=== PATIENT | female | born 1990 | race Caucasian/White ===

== ENCOUNTER 2017-10-18 02:50 | Inpatient (IN) | payer MEDICAID ==
[~2017-10-18] VITALS: Ht 154.9 cm; Wt 52.8 kg
[2017-10-18 03:21] LABS: BASOPHIL % 0.2 % (0-2); PLATELET COUNT 172 x10^3mcL (130-400)
[2017-10-18 03:38] LABS: POTASSIUM SERUM 3.5 mmol/L (3.5-5.1); TOTAL PROTEIN, SERUM 6.6 g/dL (6.4-8.2)
[2017-10-18 04:04] LABS: CALCIUM 7.7 mg/dL (8.5-10.1); CARBON DIOXIDE 21.9 mmol/L (21-32); CHLORIDE SERUM 110 mmol/L (98-107); CREATININE SERUM 0.7 mg/dL (0.6-1.0); GFR1 > 60 mL/min; GLUCOSE SERUM 103 mg/dL (74-106); SODIUM SERUM 141 mmol/L (136-145)
[2017-10-18 04:08] LABS: ALBUMIN 3.6 g/dL (3.4-5.0); ALKALINE PHOSPHATASE 58 U/L (46-116); ALT/SGPT 18 U/L (14-59); AST/SGOT 28 U/L (15-37); BILIRUBIN TOTAL 0.17 mg/dL (0.20-1.00)
[2017-10-18 04:23] LABS: microscopic required? YES; urine erythrocyte 1+ (NEGATIVE)
[2017-10-18 04:49] LABS: AMPHETAMINE QUAL UR POSITIVE (NEG <=1000)
[2017-10-18 17:16] LABS: MAGNESIUM 1.6 mg/dL (1.8-2.4); PHOSPHOROUS 3.8 mg/dL (2.5-4.9)
[2017-10-18 17:18] LABS: CHOLESTEROL/HDL RATIO 2.3
[2017-10-18 17:25] LABS: T3 TOTAL 0.97 ng/mL
[2017-10-18 17:36] LABS: FREE T4 0.87 ng/dL (0.76-1.46); FREE THYROXINE INDEX 2.1 ug/dL (1.4-4.5); T4(THYROXINE) 5.8 ug/dL (4.7-13.3)
[2017-10-18 18:13] VITALS: BP 107/64
[2017-10-18 18:19] VITALS: Ht 154.9 cm; Wt 52.8 kg
[2017-10-18 21:44] VITALS: BP 104/62
[2017-10-18 22:32] LABS: CALCIUM 7.9 mg/dL (8.5-10.1); CARBON DIOXIDE 21.8 mmol/L (21-32); CHLORIDE SERUM 108 mmol/L (98-107); CREATININE SERUM 0.8 mg/dL (0.6-1.0); GFR1 > 60 mL/min; GLUCOSE SERUM 154 mg/dL (74-106); POTASSIUM SERUM 3.3 mmol/L (3.5-5.1); SODIUM SERUM 138 mmol/L (136-145)
[2017-10-19 05:16] VITALS: BP 93/57
[2017-10-19 06:12] LABS: ALBUMIN 3.4 g/dL (3.4-5.0); ALKALINE PHOSPHATASE 61 U/L (46-116); ALT/SGPT 20 U/L (14-59); AST/SGOT 29 U/L (15-37); BILIRUBIN TOTAL 0.38 mg/dL (0.20-1.00); CALCIUM 8.2 mg/dL (8.5-10.1); CARBON DIOXIDE 26.3 mmol/L (21-32); CHLORIDE SERUM 108 mmol/L (98-107); CREATININE SERUM 0.6 mg/dL (0.6-1.0); GFR1 > 60 mL/min; GLUCOSE SERUM 99 mg/dL (74-106); SODIUM SERUM 140 mmol/L (136-145); TOTAL PROTEIN, SERUM 6.4 g/dL (6.4-8.2)
[2017-10-19 07:01] LABS: BASOPHIL % 0.3 % (0-2); PLATELET COUNT 176 x10^3mcL (130-400)
[2017-10-19 07:16] LABS: RED CELL DISTRIBUTION WIDTH 15.3 % (11.5-14.5)
[2017-10-19 09:13] VITALS: BP 98/64
[2017-10-19 13:31] VITALS: BP 97/57
[2017-10-19 17:26] VITALS: BP 99/43
[2017-10-19 21:25] VITALS: BP 111/85
== END 2017-10-19 21:50 | disposition left against medical advice (07) | DRG 812 ==
LOC: ED 02:50 → DU 16:31
PROVIDERS: Emergency Medicine; Family Medicine
DX: T43.622A Poisoning by amphetamines, intentional self-harm, initial encounter (principal); G92 Toxic encephalopathy; E83.42 Hypomagnesemia; R45.851 Suicidal ideations; F31.9 Bipolar disorder, unspecified; F10.129 Alcohol abuse with intoxication, unspecified; D50.9 Iron deficiency anemia, unspecified; F19.10 Other psychoactive substance abuse, uncomplicated; T51.92XA Toxic effect of unspecified alcohol, intentional self-harm, initial encounter; T43.212A Poisoning by selective serotonin and norepinephrine reuptake inhibitors, intentional self-harm, initial encounter; T39.1X2A Poisoning by 4-Aminophenol derivatives, intentional self-harm, initial encounter; T39.092A Poisoning by salicylates, intentional self-harm, initial encounter; T43.625A Adverse effect of amphetamines, initial encounter; Y92.89 Other specified places as the place of occurrence of the external cause; Z90.49 Acquired absence of other specified parts of digestive tract; Z53.21 Procedure and treatment not carried out due to patient leaving prior to being seen by health care provider
CPT/HCPCS: 84439; G0480; J1200; J2405; J2930; J3475; J3490; J7030

== ENCOUNTER 2019-04-03 08:02 | Emergency (ER) | payer SELFPAY ==
[~2019-04-03] VITALS: Ht 154.9 cm; Wt 49.4 kg
[2019-04-03 08:06] VITALS: BP 115/67; Ht 154.9 cm; Wt 49.4 kg
== END 2019-04-03 09:04 | disposition home or self-care (01) ==
LOC: ED 08:02
DX: S41.132A Puncture wound without foreign body of left upper arm, initial encounter (principal); S00.81XA Abrasion of other part of head, initial encounter; Z90.89 Acquired absence of other organs; W55.01XA Bitten by cat, initial encounter; Y93.89 Activity, other specified; Y92.89 Other specified places as the place of occurrence of the external cause; Y99.8 Other external cause status